=== PATIENT | male | born 1975 | race Caucasian/White ===

== ENCOUNTER 2022-07-15 23:46 | Emergency (ER) | payer OTHER ==
[2022-07-15 23:58] VITALS: BP 149/88; PULSE 86; RESP 18; TEMP 98; BMI 25.7
[2022-07-16] MEDS ORDERED: KETOROLAC TROMETHAMINE 30 MG/1 ML VIAL IM ONE (01:15)
[2022-07-16] MEDS ORDERED: diazePAM 5 MG TABLET PO ONE (01:16)
[2022-07-16] MEDS ORDERED: diazePAM 5 MG TABLET ONE (01:21)
[2022-07-16] MEDS ORDERED: KETOROLAC TROMETHAMINE 30 MG/1 ML VIAL ONE (01:21)
== END 2022-07-16 02:33 | disposition home or self-care (01) ==
LOC: JER 23:46 → JERFT 23:46
PROC: 3E023GC Introduction of Other Therapeutic Substance into Muscle, Percutaneous Approach (ICD-10-PCS; principal; 2022-07-15)
DX: M79.605 Pain in left leg (principal)
CPT/HCPCS: 73562-TC-LT-FY; 93971-TC; 99284-25

== ENCOUNTER 2024-06-13 11:41 | Emergency (ER) | payer SELFPAY ==
[2024-06-13 11:47] VITALS: BP 146/86; PULSE 63; RESP 18; TEMP 97.9; BMI 25.7
== END 2024-06-13 14:40 | disposition home or self-care (01) ==
LOC: JERFT 11:41
DX: L60.0 Ingrowing nail (principal)
CPT/HCPCS: 99283-25